=== PATIENT | male | born 1975 | race Caucasian/White ===

== ENCOUNTER 2023-09-07 14:50 | Emergency (ER) | payer OTHER, SELFPAY ==
--- NOTE | ~2023-09-07 | XR_ITS ---
EXAMINATION: XR chest 2V DATE: 09/07/2023 15:19 INDICATION: Cough. Fever. TECHNIQUE: Frontal and lateral views of the chest were obtained. COMPARISON: None. FINDINGS: There is no pneumonia, pleural effusion, or pneumothorax. The heart size is normal. IMPRESSION: 1. No acute cardiopulmonary disease. Reviewed, dictated and finalized at location E.
[2023-09-07 15:00] VITALS: BP 113/70; PULSE 70; RESP 16; TEMP 36.8; O2SAT 97
--- NOTE | 2023-09-07 15:12 | ED.URI ---
HPI - URI/Sore Throat General Chief Complaint: Upper Respiratory Infection Stated Complaint: Cough/Chest Congestion/Shortness of Breath/Fever History of Present Illness HPI Narrative: patient presents for evaluation of cough for the past two weeks. no shortness of breath and no chest pain. patient was evaluated by telehealth weeks ago and give albuterol inhaler and Tessalon pearls patient states he felt better and then this am was more fatigued than usual and did another telehealth visit and was instructed he might have walking pneumonia and to be evaluated with a chest x ray. patient is not taking anything OTC for his symptoms Related Data Home Medications Medication Instructions Recorded Confirmed albuterol sulfate 90 mcg/actuation inhalation 09/07/23 aerosol inhaler benzonatate 200 mg capsule mg PO 09/07/23 Allergies Allergy/AdvReac Type Severity Reaction Status Date / Time No Known Allergies Allergy Verified 09/07/23 15:18 Review of Systems Review of Systems: CONSTITUTIONAL: Denies chills, or sweats. Reports fever and generalized body aches EYES: Denies visual changes, redness, or discharge. ENT: Denies otalgia. Reports nasal congestion runny nose and sore throat CARDIOVASCULAR: Denies chest pain, palpitations, or edema. RESPIRATORY: Denies dyspnea. Reports occasional cough GASTROINTESTINAL: Denies abdominal pain, nausea, vomiting, or diarrhea. GENITOURINARY: Denies dysuria or hematuria. SKIN: Denies rash or itching. MUSCULOSKELETAL: Denies back pain, joint pain, or myalgia. Reports generalized body aches NEUROLOGIC: Denies headache, numbness, or weakness. PSYCHIATRIC: Denies anxiety or depression. PMFSH Comments At time of signature, agree with nursing past medical, surgical, social and family history. There is no relevant family history pertinent to the presenting complaint Exam Narrative: The patient is a well-developed, well-nourished in no acute distress. SKIN: Skin is warm and dry without erythema, swelling or exudate. There is good turgor. No tenting. HEAD: Atraumatic. Normocephalic. No temporal or scalp tenderness. EYES: Moist and bright. Sclera and conjunctivae normal. No discharge. PERRLA. Extraocular motions intact. Gross visual acuity intact. EARS: Pinna is normal shape and contour. Clear external auditory canals. TM pearly jha with good cone of light, no erythema or suppuration. Bilateral cerumen noted no gross hearing deficit. NOSE: pink, moist mucosa with good air movement. Clear rhinorrhea without nasal flaring. Septum midline. Mouth: moist mucous membranes. THROAT; mild erythema noted to posterior oropharynx with moderate postnasal drainage. Without exudate or ulceration.. Uvula midline. Normal movement of soft palate. NECK: Supple and nontender with full range of motion without discomfort. No meningeal signs. LUNGS: Equal and bilateral breath sounds without wheezes, rales or rhonchi. CHEST: The chest wall is without retractions or use of accessory muscles. HEART: Has a regular rate and rhythm without murmur, gallops, click or rub. ABDOMEN: Soft, nontender with positive active bowel sounds. No rebound tenderness. EXTREMITIES: Without cyanosis, clubbing or edema. Equal 2+ distal pulses and 2 second capillary refill noted. NEUROLOGIC: alert, active, . The patient moves all extremities with normal muscle strength. Normal muscle tone is noted. Normal coordination is noted. NO focal neurological findings noted. Course Course Level of Care: Express Care Visit Vital Signs Vital signs: Vital Signs Temperature 36.8 C 09/07/23 15:00 Pulse Rate 70 09/07/23 15:00 Respiratory Rate 16 09/07/23 15:00 Blood Pressure 113/70 09/07/23 15:00 Pulse Oximetry 97 09/07/23 15:00 Oxygen Delivery Room Air 09/07/23 15:00 Temperature 36.8 C 09/07/23 15:00 Pulse Rate 70 09/07/23 15:00 Respiratory Rate 16 09/07/23 15:00 Blood Pressure 113/70 09/07/23 15:00 Pulse
== END 2023-09-07 15:39 | disposition home or self-care (01) ==
PROVIDERS: Emergency Provider Nurse Practitioner Family
DX: J20.9 Acute bronchitis, unspecified (principal)
CPT/HCPCS: 71046; 99213; G0463

== ENCOUNTER 2023-10-28 13:12 | Emergency (ER) | payer OTHER, SELFPAY ==
--- NOTE | ~2023-10-28 | XR_ITS ---
XR finger 2nd LT min 2V Ordering provider: SONAM Ross History: . r/o fx, smashed hand into door 3 days ago . Comparison: None. FINDINGS: BONES: fracture is seen in the distal phalanx of the second finger. No significant displacement of th e fragments is seen. Tiny bony fragment is also seen near to the base of the distal phalanx. JOINT SPACES: Normal. SOFT TISSUES: Normal. IMPRESSION: Fracture in the tip of the distal phalanx of the second finger. Reviewed, dictated and finalized at location A.
[2023-10-28 13:23] VITALS: BP 159/82; PULSE 73; RESP 13; TEMP 36.6; O2SAT 98
[2023-10-28] MEDS: KETOROLAC (*BKC) 60 MG/2 ML VIAL IM (13:51)
[2023-10-28] MEDS: TETANUS,DIPHTHERIA,AC PERTUSSIS ADULT (0.5 ML) BOOSTRIX IM (13:54)
--- NOTE | 2023-10-28 13:58 | ED.GENADULT ---
HPI - General Adult General Chief complaint: Extremity Injury, Upper Stated complaint: Burn to Thumb/ Finger Injury Source: patient Mode of arrival: ambulatory Limitations: no limitations History of Present Illness HPI narrative: Patient presents for evaluation of injuries to his bilateral hands that occurred that occurred 3 days ago. He indicates he picked up a chainsaw and the exhaust burned him on the right thumb. Two logs then rolled together and smashed his left index finger in the process. He reports 10/10 pain in left index finger. He is left-hand dominant. He has a darkened appearance to the nailplate of the right thumb and left index finger. Date of last tetanus unknown. He is not diabetic. He has not taken any medication for his symptoms. Related Data Allergies Allergy/AdvReac Type Severity Reaction Status Date / Time No Known Allergies Allergy Verified 09/07/23 15:18 Review of Systems Review of Systems: CONSTITUTIONAL: Denies fever, chills, or sweats. EYES: Denies visual changes, redness, or discharge. ENT: Denies rhinorrhea, congestion, sore throat, or otalgia. CARDIOVASCULAR: Denies chest pain, palpitations, or edema. RESPIRATORY: Denies cough or dyspnea. GASTROINTESTINAL: Denies abdominal pain, nausea, vomiting, or diarrhea. GENITOURINARY: Denies dysuria or hematuria. SKIN: Reports blistered lesion to the right thumb. Reports dark and appearance of the nail plates the right thumb and left index finger. MUSCULOSKELETAL: Reports pain in the right thumb and left index finger. NEUROLOGIC: Denies headache, numbness, dizziness, or weakness. PSYCHIATRIC: Denies anxiety or depression. [facility] Past Medical History Medical History No pertinent past medical history Surgical History Surgical History No pertinent past surgical history Family History Family History Mother Family history non-contributory Social History Social History Smoking status: Never smoker Substance use: never Living arrangements: with family Gender identity (if verbalized by the patient): Male Spiritual care concerns: No Exam Narrative: GENERAL: Well-appearing, well-nourished, and in no acute distress. HEAD: Normocephalic, atraumatic. EYES: PERRLA and EOMI. ENT: Nares clear, no rhinorrhea or epistaxis. Mucous membranes moist. Oropharynx without tonsillar hypertrophy exudate or other lesions. Bilateral TMs pearly rosales nonbulging NECK: Supple. No adenopathy or masses. No carotid bruits or JVD CHEST: Clear to auscultation. No respiratory distress. No wheezes rales or rhonchi HEART: Regular rate and rhythm. No murmur heard. Normal peripheral pulses. ABDOMEN: Soft, nontender, nondistended, normal active bowel sounds. EXTREMITIES: There is swelling noted to the distal phalanx of the left index finger with associated tenderness SKIN: There is purple discoloration noted to entire nailplate of the left index finger and a more localized area to the right thumb. There is a large blister to the palmar aspect of distal phalanx of right thumb NEURO: No focal deficits. Alert and oriented x3. PSYCH: Normal mood and affect. Course Course Emergency Course: This is a 48-year-old male who presented for evaluation of injuries to several digits of his hands. Nail trephination was performed on right thumb and left index finger. Patient tolerated well. Blistered lesion was drained. Finger was immobilized in aluminum splint. He was updated on tetanus. He will be discharged with cephalexin, silvadene and hydrocodone. He needs to follow up with hand surgeon. He should go to the ER for intractable pain, evidence of infection or worsening symptoms. Pt in agreement with plan of care. Level of Ca
== END 2023-10-28 14:35 | disposition home or self-care (01) ==
PROVIDERS: Emergency Provider Nurse Practitioner
DX: T23.211A Burn of second degree of right thumb (nail), initial encounter (principal); X19.XXXA Contact with other heat and hot substances, initial encounter; S62.661A Nondisplaced fracture of distal phalanx of left index finger, initial encounter for closed fracture; S60.111A Contusion of right thumb with damage to nail, initial encounter; S60.122A Contusion of left index finger with damage to nail, initial encounter; W20.8XXA Other cause of strike by thrown, projected or falling object, initial encounter
CPT/HCPCS: 29130; 11740 ×2; 10160; 73140; 90471; 90715; 96372; 99214; G0463; J1885

== ENCOUNTER 2024-10-30 15:57 | Emergency (ER) | payer OTHER, SELFPAY ==
[2024-10-30 16:00] VITALS: BP 140/75; PULSE 86; RESP 18; TEMP 36.8; O2SAT 98
--- NOTE | 2024-10-30 16:05 | ECG_ITS ---
Test Date: 2024-10-30 16:09:01 Measurements Intervals [place] Rate: 86 P: 48 SC: 186 QRS: 41 QRSD: 95 T: 49 QT: 356 QTc: 428 Interpretive Statements SINUS RHYTHM LOW QRS VOLTAGE IN PRECORDIAL LEADS MINIMAL Q WAVES- INFERIOR LEADS BASELINE ARTIFACT- II, III, AVF BORDERLINE ECG No previous ECG available for comparison Electronically Signed On 11-01-2024 07:06:53 CDT by Joby Thompson D.O.
--- NOTE | 2024-10-30 17:21 | ED_ITS ---
HPI - Back Pain/Injury General Chief Complaint: Back Pain/Injury Stated Complaint: Shortness of Breath/Back Pain/Abdominal Pain Time Seen by Provider: 10/30/24 16:25 Source: patient and RN notes reviewed Mode of arrival: ambulatory Limitations: no limitations History of Present Illness HPI Narrative: 49-year-old male presents Express Care complaining multiple medical complaints. Patient said yesterday he developed mid back pain on his left side. Patient has a maybe he pulled something in his back. Patient denies any apparent injury. Patient had a son use massage given to his back and appeared to have made it worse. Patient said since then he developed radiating pain through his epigastrium and upper abdomen, left leg shooting pain, chest pain, shortness of breath, dizziness. Patient states states the pain is not constant and is worse with certain movements of his back. Patient said the pain was so bad that it made him lose bladder function and he wet himself yesterday. Patient denies any saddle anesthesia, loss of bowel function. Denies any low back pain. Patient states he continues to feel short of breath especially when he is up ambulating, along with dizziness. Patient denies any significant past medical history. Patient has not tried anything [id number] help with symptoms. Patient said he recently had a long travel from [place] a few days ago. Patient denies any history of blood clots, denies any or ripping sensation in his chest or back. Related Data Home Medications ?Medication ?Instructions ?Recorded ?Confirmed ?Last Taken ?Type No Home Medications 10/30/24 10/30/24 Unknown History Allergies Allergy/AdvReac Type Severity Reaction Status Date / Time lactose intolerant AdvReac Unknown Unknown Uncoded 10/30/24 16:16 Review of Systems Review of Systems: CONSTITUTIONAL: Denies fever, chills, or sweats. EYES: Denies visual changes, redness, or discharge. ENT: Denies rhinorrhea, congestion, sore throat, or otalgia. CARDIOVASCULAR: Denies chest pain, palpitations, syncope, lightheadedness, edema. Positive for chest pain, dizzines., RESPIRATORY: Denies cough, respiratory distress, or wheezing. Positive for dyspnea. GASTROINTESTINAL: Denies vomiting, or diarrhea. Positive for upper abdominal pain, and nausea. GENITOURINARY: Denies dysuria or hematuria. SKIN: Denies rash or itching. MUSCULOSKELETAL: Denies back pain, joint pain, or myalgia. NEUROLOGIC: Denies headache, numbness, loss of bowel, saddle anesthesia, or weakness. Positive for loss of bladder function. PSYCHIATRIC: Denies anxiety or depression. All other systems reviewed are negative, except as documented in HPI. [facility] Past Medical History Medical History No pertinent past medical history Surgical History Surgical History No pertinent past surgical history Family History Family History Mother Family history non-contributory Social History Social History Smoking status: Never smoker Substance use: never Living arrangements: with family Gender identity (if verbalized by the patient): Male Spiritual care concerns: No Comments At the time of my signature, I reviewed and agree with the nursing past medical, surgical, social, and family history. There is no relevant family history pertinent to the patient complaint. Exam Narrative: GENERAL: This is a well-nourished, well-developed adult, in no apparent distress. They are non ill-appearing, nontoxic appearing. HEAD: normocephalic, atraumatic. EYES: Sclera clear/white. Conjunctiva normal. Vision is grossly intact. Extraocular movements intact EARS: External ears normal, Hearing grossly intact. NOSE: External nose normal THROAT: Mucous membranes moist, NECK: Neck supple, CARDIOVASCULAR: Regular rate and rhythm without murmurs, gallops, or rubs. RESPIRATORY: Clear to auscultation. Breath sounds equal bilaterally. No wheezes, rales, or rhonchi. Respiratory rate normal, respiratory effort nonlabored, no respiratory distress GASTROINTESTINAL: Abdomen soft, tenderness to palpation in epigastric region, nondistended. Bowel sounds are active. No hepato-splenomegaly, or palpable masses. No guarding, rigidity, no rebound tenderness. SKIN: warm, Dry, intact with no suspicious lesions or rash, good texture and turgor. NEURO: awake, alert, and oriented to person, place and time. There were no obvious focal neurologic abnormalities. EXTREMITIES: No joint tenderness, effusion, or edema noted. BACK: Tenderness to palpation to the left mid medial back. No cervical, thoracic, lumbar point tenderness, crepitus, or step-offs. No CVA tenderness. Course Course Emergency Course: Portions of this record may have been created with voice recognition software Level of Care: Express Care Visit Vital Signs Vital signs: Vital Signs Temperature 98.3 F 10/30/24 16:00 Pulse Rate 86 10/30/24 16:00 Respiratory Rate 18 10/30/24 16:00 Blood Pressure 140/75 10/30/24 16:00 Pulse Oximetry 98 10/30/24 16:00 Oxygen Delivery Room Air 10/30/24 16:00 Temperature 98.3 F 10/30/24 16:00 Pulse Rate 86 10/30/24 16:00 Respiratory Rate 18 10/30/24 16:00 Blood Pressure 140/75 10/30/24 16:00 Pulse Oximetry 98 10/30/24 16:00 Oxygen Delivery Room Air 10/30/24 16:00 Reviewed Transfer Transportation: Other (Private vehicle) Transfer rationale: Chest pain pain, back pain, abdominal pain, dizziness, requiring higher level care Accepting physician: Dr. Bone MDM - Back Pain/Injury MDM Narrative Medical decision making narrative: EKG is negative for any ischemic findings, it is sinus rhythm. Given patient's symptoms, it is recommend the patient seek a higher level care and proceed immediately to the emergency department. Patient is agreeable to [facility] ER. Called over to [facility] ER and spoke to Esperanza Weir who is aware this patient and Dr. Bone who accepted this patient for transfer. Offered patient EMS and he declined. Patient will drive himself to the hospital via private vehicle. Patient is in no apparent distress. Patient is hemodynamically stable to transfer himself. Patient advised to remain NPO and proceed immediately to the ER. Differential Diagnosis Differential diagnosis: Likely sciatica, strain of lumbar region, AAA and other (Renal stone, pulmonary embolism) ECG Data EKG #1: Attestation: I personally reviewed and interpreted this ECG as follows: ECG completion date: 10/30/24 ECG completion time: 16:09 Prior ECG tracings: not available for review EKG Interpretation: normal rate, sinus rhythm, no ectopy, no ST changes and normal QRS Critical Care Time Critical Care Time Critical Care Time: No Discharge Plan Discharge Clinical Impression: Back pain Qualifiers: Back pain location: thoracic back pain Chronicity: acute Back pain laterality: left Qualified Code(s): M54.6 - Pain in thoracic spine Chest pain Qualifiers: Chest pain type: unspecified Qualified Code(s): R07.9 - Chest pain, unspecified Patient Disposition: Acute Care Hospital Condition: Stable Patient Language: Turkish Prescriptions: No Action No Home Medications Follow-up/Referrals: PHYSICIAN,DEVIL DOG [Primary Care Provider] - Time of Disposition: 16:40
== END 2024-10-30 16:43 | disposition short-term general hospital (02) ==
DX: M54.6 Pain in thoracic spine (principal); R07.9 Chest pain, unspecified
CPT/HCPCS: 93005; 99213; G0463

== ENCOUNTER 2025-01-11 09:05 | Emergency (ER) | payer OTHER, SELFPAY ==
[2025-01-11 09:10] VITALS: BP 123/70; PULSE 71; RESP 20; TEMP 36.6; O2SAT 100
--- OUTSIDE RECORDS SUMMARY | 2025-01-11 09:15 | XMS_ITS | Encounter Summary ---
Author Organization [facility] Healthcare Address [address] [place] [address] Care Team Providers Care Water Filtration Technician Name Role Phone Rl Peraza MD Primary Care Provi emilie Encounter Details Date Type Department Care Team (Late st Contact Info) Description 11/14/2024 Results Follow-Up [facility] [address] [place] [address] Rl Peraza MD [address] [place] [address] Magnesium, Comprehensive metabolic panel, eGFR Social History Tobacco Use Types Packs/Day Years Used Date Smoking Tobacco: Never Passive Smoke Exposure: Never Smokeless Tobacco: Never PHQ-2 Answer Date Recorded PHQ-2 Total Score (If total score is 3 or more points, staff should administer the PHQ-9) 0 11/11/2024 PHQ-9 Answer Date Recorded PHQ-9 Total Score 0 11/11/2024 Personal Safety Answer Date Recorded Have you ever been in or are you currently in a harmful physical or emotional relationship or is someone making you feel afraid or unsafe? 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
--- OUTSIDE RECORDS SUMMARY | 2025-01-11 09:15 | XMS_ITS | Clinical Summary ---
Author Organization [facility] Address [address] [place] [address] Phone Care Team Providers Care Skin Washer Name Role Phone Jennifer Ingram DUSTY, WEB ANALYTICS SPECIALIST Unavailable Allergies No known active allergies Medications Fexofenadine-Pse udoephedrine (ELI-D PO) Take by mouth as needed. Active Multiple Vitamin (MULTI-VITAMIN PO) Take by mouth. HOLD FOR 5 DAYS PRIOR TO PROCEDURE Active omeprazole (PriLOSEC) 20 MG CAPSULE DELAYED RELEASEIndicatio ns:Gastroesophag eal reflux disease with esophagitis and hemorrhage Take 1 Capsule by mouth 2 times daily. 180 Capsule 3 3 Active Additional Information Patient taking differently:20 mg OralDAILY, Reported on 06/17/2022 famotidine (PEPCID) 20 MG TabletIndication s:Gastroesophage al reflux disease with esophagitis and hemorrhage Take 1 Tablet by mouth every evening. 90 Tablet 3 3 Active fish oil-omega-3 fatty acids 1000 MG Capsule Take 1 Capsule by mouth daily. HOLD FOR 5 DAYS PRIOR TO PROCEDURE Active Active Problems No known active problems Immunizations Immunization Administration Dates Next Due Covid-19, Mrna, Lnp-s, Pf, 30 Mcg/0.3 Ml Dose (P fizer) 04/23/2021 Influenza Vaccine, Quadrivalent, PF 01/31/2021 TDAP Vaccine 10/12/2014 Family History Medical History Relation Name Comments No Known Problems Brother Cancer Father STOMACH Diabetes Father Cancer Mother ABDOMINAL? Diabetes Mother Other-comment Sister 1 heart palpitat ions No Known Problems Sister 2 Relation Name Status Comments Brother Alive Father Mother Alive Sister 1 Alive Sister 2 Alive Social History Tobacco Use Types Packs/Day Years Used Date Smoking Tobacco: Former Cigarettes Q uit: 2021 Smokeless Tobacco: Former Chew Quit: 1999 Tobacco Cessation:Counseling Given: Not Answered Alcohol Use Standard Drinks/Week Comments Yes 0 (1 standard drink = 0.6 oz pur e alcohol) SOCIALLY PHQ-2 Answer Date Recorded Total Score - Questions 1-9 0 01/11 Education Answer Date Recorded What is the highest level of school you have completed or the highest degree you have received? Associate degree: occupational, technical, or vocational program 05/16/2022 Sexually Active Control Partners Comments Yes Sex and Gender Information Value Date Recorded Sex Assigned at Not on file Legal Sex Male 2:05 PM CDT Gender Identity Not on file Sexual Orientation Not on file Last Filed Vital Signs Vital Sign Reading Time Taken Comments Blood Pressure 113/75 09/02/2022 12:46 PM CDT Pulse 74 09/02/2022 12:46 PM CDT Temperature 36 C (96.8 F) 09/02/2022 12:46 PM CDT Respiratory Rate 21 09/02/2022 12:46 PM CDT Oxygen Saturation 97% 09/02/2022 12:46 PM CDT Inhaled Oxygen Concentration - - Weight 108.9 kg (240 lb) 08/20/2022 1:35 PM CDT Height 193 cm (6' 4) 08/20/2022 1:35 PM CDT Body Mass Index 29.21 08/20/2022 1:35 PM CDT Plan of Treatment Health Maintenance Due Date Last Done Comments Hepatitis B Immunization (1 of 3 - 19+ 3-dose series) 1995 Cologuard 2021 Immunochemical Fecal Occult Blood 2021 SARS-COV-2 Immunization ( season) 2024 04/23/2021, 09/09/2020, 08/19/2020 Td Immunization Every 10 Yea rs (Adults With 1 Tdap) 10/12/2024 10/12/2014 Influenza Immunization (#1) 2025 01/31/2021 Colonoscopy 09/03/2027 09/02/2022 Colorectal Cancer Screening 09/03/2027 Respiratory Syncytial Virus (RSV) Immunization (Adult) (1 - 1-dose 75+ series) 2051 DTaP/Tdap/Td Immunization Discontinued 10/12/2014 Hepatitis C Virus (HCV) Screening Completed 10/17/2020 Human Papillomavirus (HPV) Immunization Aged Out No longer eligible based on patient's age to complete this topic Meningococcal Immunization (ACWY) Aged Out No longer eligible based on patient's age to complete this topic Pneumococcal Immunization Combined Aged Out No longer eligible based on patient's age to complete this topic Rotavirus Immunization Aged Out No lo nger eligible based on patient's age to complete this topic Procedures Procedure Name Priority Date/Time Associated Diagnosis Comments HEPATITIS PANEL ACUTE (AHP) Routine 10/17/2020 10:29 AM CDT Fatigue, unspecified type Weight loss from Last 3 Months or Most Recently Relevant to Health Maintenance Results * HEPATITIS PANEL ACUTE (AHP) (10/17/2020 10:29 AM CDT) HEPATITIS A IGM ANTIBODY NON DETECTED NON DETECTED [address] B 10/17/2020 10:10 PM CDT [facility] Comment: IGM Antibodies to HAV not detected. Does not exclude early acute or recovered HAV infection. HEP B CORE AB (IGM) NON DETECTED NON DETECTED [address] B 10/17/2020 10:10 PM CDT [facility] Comment:IGM anti-HBC not det ected. Does not exclude the possibility of exposure to or infection with HBV. HEPATITIS B SURFACE ANTIGEN NON DETECTED NON DETECTED [address] B 10/17/2020 10:10 PM CDT [facility] Comment:A nonreactive test r esult does not exclude the possibility of exposure to or infection with Hepatitis B virus. A nonreactive test result in individuals with prior exposure to hepatitis B may be due to antigen levels below the detection limit of this assay or lack of antigen reactivity to the antibodies in this assay. hepatitis C antibody 0.12 <1 S/CO [address] B 10/17/2020 10:10 PM CDT [facility] Comment: Signal/Cutoff ratio < 0.79 is Nondetected Signal/Cutoff ratio 0.80-0.99 is Grayzone Signal/Cutoff ratio > 0.99 is Detected Supplemental assays are recommended if signal/cutoff ratio is >/=1.00. Signal/cutoff ratio result >/= 5.00 is 97% predictive of positivity for recombinant immunoblot assay (RIBA) and will be reported to the [place] Department of Public Health as required. Blood Venipuncture / Unknown 10/17/2020 10:29 AM CDT 10/17/2020 10:31 AM CDT us Chris Weber [facility] HEMATOLOGY ORDERABLES Fi nal Result [facility] [address] [place] [address], from Last 3 Months or Most Recently Relevant to Health Maintenance Insurance [facility] Care Teams Skin Washer Relationship Specialty Start Date End Date Jennifer Ingram APRN, WEB ANALYTICS SPECIALIST [address] [place] [address] Nurse Practitioner Advanced Practice Nurse 06/14/22
--- OUTSIDE RECORDS SUMMARY | 2025-01-11 09:15 | XMS_ITS | Encounter Summary ---
Author Organization [facility] Address [address] [place] [address] Phone Care Team Providers Care Flex O Writer Operator Name Role Phone Chris Weber Primary Care Provider U Gabriela Durham APRN, SNOWMAKER Primary Care Provider Jennifer Ingram APRN, SNOWMAKER Unavailable Reason for Visit * Reason Comments Medication Refill Encounter Details Date Type Department Care Team (Late st Contact Info) Description 12/06/2020 Refill [facility] - Primary Care - [place] [address] [place] [id number] Chris Weber, PAC Medication Refill Social History Tobacco Use Types Packs/Day Years Used Date Smoking Tobacco: Never Smokeless Tobacco: Never Alcohol Use Standard Drinks/Week Comments Not Currently 0 (1 standard drink = 0.6 oz pur e alcohol) PHQ-2 Answer Date Recorded Total Score - Questions 1-9 0 11/2020 Sexually Active Control Partners Comments Yes Sex and Gender Information Value Date Recorded Sex Assigned at Not on file Legal Sex Male 2:05 PM CDT Gender Identity Not on file Sexual Orientation Not on file COVID-19 Exposure Response Date Recorded In the last month, have you been in contact with someone who was confirmed or suspected to have Coronavirus / COVID-19? 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
--- OUTSIDE RECORDS SUMMARY | 2025-01-11 09:15 | XMS_ITS | Clinical Summary ---
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 Name Role Phone Rl Peraza MD Primary Care Provi emilie Allergies Active Allergy Reactions Criticality Noted Date Comments Lactose Diarrhea,Flatulence,Stomach upset Low Medications HYDROcodone-willow taminophen (NORCO) 5-325 mg per tabletIndicatio ns:Pain Take 1 tablet by mouth every 6 (six) hours as needed for pain 15 tablet 10/30/2024 Active tamsulosin (FLOMAX) 0.4 mg extended release capsuleIndicati ons:Dysuria,Lef t flank pain Take 1 capsule (0.4 mg total) by mouth daily 30 capsule 11/11/2024 Active Active Problems Problem Noted Date Diagnosed Date Routine adult health maintenance 11/11/2024 Acute left-sided low back pain without sciatica 11/11/2024 Assessment & Plan (11/11/2024 3:21 PM CDT): Orders: Magnesium; Future Left flank pain 11/11/2024 Assessment & Plan (11/11/2024 3:21 PM CDT): Orders: Comprehensive metabolic panel; Future tamsulosin (FLOMAX) 0.4 mg extended release capsule; Take 1 capsule (0.4 mg total) by mouth daily Dysuria 11/11/2024 Assessment & Plan (11/11/2024 3:21 PM CDT): Orders: tamsulosin (FLOMAX) 0.4 mg extended release capsule; Take 1 capsule (0.4 mg total) by mouth daily sulfamethoxazole-trimethoprim (BACTRIM DS) 800-160 mg per tablet; Take 1 tablet by mouth 2 (two) times a day for 10 days Resolved Problems Problem Noted Date Diagnosed Date Resolved Date Non-recurrent acute suppurat satish otitis media of left ear without spontaneous rupture of tympanic membrane 12/14/2022 11/11/2024 Assessment & Plan (12/14/2022 5:35 PM CDT): Antibiotic ordered during this visit. Discussed with patient/caregiver using warm compresses to the affected side, and supportive measures including increase fluid intake, rest, use of Tylenol/Motrin for discomfort and fever. Patient/caregiver understands and agrees with treatment plan. Call or RTC with any questions or concerns. Bronchitis, acute, with bronchospasm 05/10/2022 11/11/2024 Uvulitis 05/10/2022 11/11/2024 Encounters Date Type Department Care Team Description 11/14/2024 Results Follow-Up [facility] at [address] [place] [phone] Rl Peraza MD Magnesium, Comprehensive metabolic panel, eGFR 11/11/2024 3:30 PM CDT Lab [facility] - Outpatient Center at [address] [address] Acute left-sided low back pain without sciatica; Left flank pain 11/11/2024 3:00 PM CDT Office Visit [facility] Primary Care at [address] [place] [phone] Rl Peraza MD Left flank pain (Primary Dx); Dysuria; Acute left-sided low back pain without sciatica 10/30/2024 5:55 PM CDT - 10/31/2024 12:50 AM CDT Emergency [facility] Department [address] [place] [address] Stan Bone MD Dehydration (Primary Dx); Food poisoning; Acute bilateral low back pain without sciatica Discharge Disposition: Discharge to home or self care from Last 3 Months Immunizations Immunization Administration Dates Next Due Influenza, Quadrivalent, Spl it, Preservative Free, Intramuscular 01/31/2021 Influenza, Unspecified 02/19/2024(Deferr ed: Patient Refused),02/19/2024(Deferred: Patient Refused) Tdap 10/28/2023,10/12/2014 Social History Tobacco Use Types Packs/Day Years Used Date Smoking Tobacco: Never Passive Smoke Exposure: Never Smokeless Tobacco: Never Tobacco Cessation:Counseling Given: Not Answered PHQ-2 Answer Date Recorded PHQ-2 Total Score [...] on file 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 Gender Identity Not on file Sexual Orientation Not on file Obstetrics History Last Filed Vital Signs Vital Sign Reading Time Taken Comments Blood Pressure 116/70 11/11/2024 2:53 PM CDT Pulse 78 11/11/2024 2:53 PM CDT Temperature 36.7 C (98 F) 11/11/2024 2:53 PM CDT Respiratory Rate 18 11/11/2024 2:53 PM CDT Oxygen Saturation 98% 11/11/2024 2:53 PM CDT Inhaled Oxygen Concentration - - Weight 106.6 kg (235 lb) 11/11/2024 2:53 PM CDT Height 193 cm (6' 3.98) 11/11/2024 2:53 PM CDT Body Mass Index 28.62 11/11/2024 2:53 PM CDT Plan of Treatment Health Maintenance Due Date Last Done Comments Colon Cancer Screening-Colonoscopy 1976 Hepatitis C Screening 1976 Hepatitis B Screening 1994 Regular Well Visit/Exam 18-64 1994 Covid-19 Vaccine (2023-2 5 season) 2024 04/23/2021, 09/09/2020, 08/19/2020 Influenza Vaccine (#1) 2025 01/31/2021 Depression Screening 11/11/2025 11/11/2024, 11/11/2024 DTaP/Tdap/Td Vaccine (3 - Td or Tdap) 10/27/2033 10/28/2023, 10/12/2014 Pneumococcal vaccine <65 Aged Out No longer eligible based on patient's age to complete this topic Procedures Procedure Name Priority Date/Time Associated Diagnosis Comments EGFR Routine 11/11/2024 3:24 PM CDT Left flank pain COMPREHENSIVE METABOLIC PANEL Routine 11/11/2024 3:24 PM CDT Left flank pain MAGNESIUM Routine 11/11/2024 3:24 PM CDT Acute left-sided low back pain without sciatica TROPONIN T HIGH-SENSITIVITY 2-HOUR Timed 10/30/2024 9:00 PM CDT URINALYSIS AND REFLEX TO MICROSCOPIC STAT 10/30/2024 8:[address] CHEST PE ABDOMEN PELVIS W CONTRAST ED 10/30/2024 6:54 PM CDT XR CHEST PA LATERAL 2 VIEWS ED 10/30/2024 6:41 PM CDT EGFR STAT 10/30/2024 6:18 PM CDT ERYTHROCYTE SEDIMENTATION RATE STAT 10/30/2024 6:18 PM CDT DIFFERENTIAL AUTO STAT 10/30/2024 6:1 8 PM CDT LIPASE STAT 10/30/2024 6:18 PM CDT TROPONIN T HIGH-SENSITIVITY SERIES (BASELINE, 2HR, 4HR, 6HR) STAT 10/30/2024 6:18 PM CDT COMPREHENSIVE METABOLIC PANEL STAT 10/30/2024 6:18 PM CDT CBC WITH AUTO DIFFERENTIAL STAT 10/30/2024 6:18 PM CDT ECG 12-LEAD STAT 10/30/2024 5:54 PM CDT from Last 3 Months Results * eGFR (11/11/2024 3:24 PM CDT) eGFR >90 >=60 mL/min/1. 73 m2 Comment: Interpretive Data Reference Interval Normal >/= 90 mL/min/1.73m2 Mildly decreased* 60 - 89 mL/min/1.73m2 Mildly to moderately decreased 45 - 59 mL/min/1.73m2 Moderately to severely decreased 30 - 44 mL/min/1.73m2 Severely decreased 15 - 29 mL/min/1.73m2 Kidney Failure < 15 mL/min/1.73m2 *Relative to young adult level Estimated glomerular filtration rate is determined by the 2020 CKD-EPI equation recommended by the National Kidney Foundation (A Unifying Approach to GFR Estimation: Recommendations of the NKF-ASK Task Force on Reassessing the Inclusion of Race in Diagnosing Kidney Disease, JASN 2020). The CKD-EPI equation should not be used for patients with unstable renal function and has not been validated in children and those over 70. Current interpretive data was last reviewed 2021. Testing performed by: [address] [address] Blood 11/11/2024 3:24 PM CDT 11/11/2024 8:37 PM CDT us Rl Peraza MD LAB BLOOD ORDERABLE S Final Result [facility] [address] Department [place] [address] * Magnesium (11/11/2024 3:24 PM CDT) [facility] Magnesium 2.2 1.4 - 2.5 mg/dL Comment:Testing performed by : [address] [address] Blood 11/11/2024 3:24 PM CDT 11/11/2024 8:06 PM CDT us Rl Peraza MD LAB BLOOD ORDERABLE S Final Result [address] Department [place] [address] * Comprehensive metabolic panel (11/11/2024 3:24 PM CDT) Sodium 140 135 - 145 mmol/L Comment:Testing performed by : [address] [address] Potassium, pl 4.3 3.3 - 4.9 mmol/L [facility] Comment:Testing performed by : [address] [address] Chloride 104 97 - 110 mmol/L [facility] Comment:Testing performed by : [address] [address] CO2 24 22 - 32 mmol/L [facility] Comment:Testing performed by : [address] [address] Anion gap 12 2 - 15 mmol/L [facility] Comment:Testing performed by : [address] [address] BUN 12 6 - 25 mg/dL [facility] Comment:Testing performed by : [address] [address] Creatinine 1.00 0.80 - 1.30 mg/dL [facility] Comment:Testing performed by : [address] [address] Glucose 92 70 - 199 mg/dL [facility] Comment: Interpretive Data Fasting glucose >/= 126 mg/dl is diagnostic for diabetes. Fasting is defined as no caloric intake for at least 8 hours. Fasting glucose between 100 mg/dl to 125 mg/dl is diagnostic of prediabetes. In a patient with classic symptoms of hyperglycemia or hyperglycemic crisis, a random glucose >/= 200 mg/dl is diagnostic for diabetes. In the absence of unequivocal hyperglycemia, results should be confirmed by repeat testing. The classification and Diagnosis of Diabetes Diabetes Care 202; 46: S19-S40. Current interpretive data was last revised 2022. Testing performed by: [facility], [address] [place] [address]., [address] Calcium 9.4 8.5 - 10.3 mg/dL [facility] Comment:Testing performed by : [address] [address] Bilirubin, total 0.7 0.1 - 1.2 mg/dL [facility] Comment:Testing performed by : [address], [address] Protein, pl 6.5 6.5 - 8.5 g/dL [facility] Comment:Testing performed by : [address] [address] Albumin 4.2 3.5 - 5.0 g/dL [facility] Comment:Testing performed by : [address], [address] Alk phos 68 40 - 130 Units/L [facility] Comment:Testing performed by : [address], [address] ALT 19 7 - 55 Units/L [facility] Comment:Testing performed by : [address] [address] AST 26 10 - 50 Units/L [facility] Comment:Testing performed by : [address] [address] Blood 11/11/2024 3:24 PM CDT 11/11/2024 8:06 PM CDT us Rl Peraza MD LAB BLOOD ORDERABLE S Final Result [address] Department [place] [address] * Troponin T high-sensitivity 2-hour (10/30/2024 9:00 PM CDT) Trop T hs <6 <=22 ng/L Comment: Interpretive Data For further hscTnT resources including the diagnostic algorithm and an aid in interpretation, copy and paste this link: https://nrl.testcatalog.org/show/hsTrop Current Interpretive Data last revised 2020. Trop T hs delta 0 ng/L [facility] ([facility]) Trop T hs interp Insignificant [facility] ([facility]) Blood 10/30/2024 9:00 PM CDT 10/30/2024 9:07 PM CDT Stan Bone MD LAB BLOOD ORDERABLES Final Result [facility] ([facility]) 1 [facility] [place] [address] * (ABNORMAL) Urinalysis reflex to microscopic (10/30/2024 8:11 PM CDT) Color, ur Yellow Yellow Clarity, ur Clear Clear [facility] ([facility]) Specific gravity, ur 1.045(H) 1.003 - 1.030 [facility] ([facility]) pH, urine 5.5 [facility] ([facility]) Comment: Interpretive Data U rine pH is affected by diet, medications, systemic acid-base disturbances, and renal tubular function. pH may affect urinary stone formation. For example, urine pH below 6.0 may help reduce the tendency for calcium phosphate stones and pH greater than 6.0 may reduce the tendency for uric acid stone formation. Source: [facility] [employer] Current Interpretive Data was last revised on 2017 Protein, ur ql Negative Negative [facility] ([facility]) Glucose, ur ql Negative Negative [facility] ([facility]) Ketones, ur Negative Negative [facility] ([facility]) Bilirubin, ur Negative Negative [facility] ([facility]) Blood, ur Negative Negative [facility] ([facility]) Urobilinogen, ur <2.0 <2.0 mg/dL [facility] ([facility]) Nitrite, ur Negative Negative [facility] ([facility]) Leukocyte esterase, ur Negative Negative [facility] ([facility]) UA reflex comment Reflex conditions for microscopic UA not met. [facility] ([facility]) Urine 10/30/2024 8:11 PM CDT 10/30/2024 8:28 PM CDT us Stan Bone MD LAB URINE ORDERABLES Final Result [facility] ([place]) 1 [facility] Department [place] [address] * CT Chest PE (CTA) Abdomen Pelvis W Contrast (10/30/2024 6:54 PM CDT) Anatomical Region Laterality Modality Body N/A Computed Tomogra phy 10/30/2024 7:47 PM CDT Narrative 10/30/2024 8:07 PM CDT EXAM DESCRIPTION: CT CHEST PE (CTA) ABDOMEN PELVIS W CONTRAST REASON FOR STUDY: back and chest pain to right flank and abd, stone versus disection Patient ambulatory to triage with complaints of abd pain, back pain, SOB on exertion since yesterday at lunch time. States pain in abd, hard, states explosion when asked about last BM either last night or this morning. States low back pain that radiates to L flank and down L leg. States CP in middle of chest that radiates both sides. States he urinated himself when he coughed earlier. Denies pain/burning/frequency with urination. TECHNIQUE: CT angiogram of the chest with routine abdomen and pelvis performed with intravenous and without oral contrast using helical scanning technique with dynamic intravenous contrast injection. Reconstructed coronal and sagittal MPR images reviewed. All images stored on PACS. 3D MIP images of the chest rendered on scanning unit and reviewed at time of interpretation. Automated exposure control was used as a dose optimization technique for this examination. CONTRAST TYPE/DOSE: 75mL of IOVERSOL 350 MG IODINE/ML INTRAVENOUS SYRINGE injected via intravenous COMPARISON: Chest radiograph, most recent dated 10/30/2024. FINDINGS: CHEST CHEST VASCULATURE: No acute pulmonary thromboembolism. No thoracic aortic aneurysm or dissection. LUNGS: Moderate emphysematous changes are seen within the bilateral upper lungs. Mild bibasilar and posterior dependent atelectasis and/or scarring. Mild biapical pleuroparenchymal thickening/scarring no focal airspace consolidation. No suspicious pulmonary nodules or masses. PLEURA: No effusion. No pneumothorax. MEDIASTINUM/DOLORES: No identified masses or abnormal nodes. HEART: Heart size is normal with no pericardial effusion. AXILLA: No adenopathy. CHEST WALL: No masses. No subcutaneous air. HARDWARE/LINES/TUBES: None. MUSCULOSKELETAL CHEST: No acute abnormality. ABDOMEN/PELVIS LIVER: Normal size. No identified cystic or solid masses. GALLBLADDER: PICC 1 BILE DUCTS: No intrahepatic or extrahepatic ductal dilatation. SPLEEN: Normal size. No focal lesions. PANCREAS: No identified cystic or solid masses. No significant calcifications. No adjacent inflammation or peripancreatic fluid collections. Pancreatic duct not dilated. ADRENALS: Normal. KIDNEYS/URINARY TRACT: No identified significant cystic or solid masses. No visualized stones. No hydronephrosis or hydroureter. Symmetric enhancement. Urinary bladder is unremarkable. GI: No dilated bowel loops. No obvious wall thickening. Normal appendix. No significant diverticular disease. PERITONEUM: No ascites or free air. Small fat containing umbilical hernia. RETROPERITONEUM: No mass or adenopathy. REPRODUCTIVE: No significant abnormality. VASCULATURE ABDOMEN: Mild aortoiliac atherosclerosis. No abdominal aortic aneurysm. MUSCULOSKELETAL ABDOMEN PELVIS: No acute abnormality. OTHER: No significant abnormality. IMPRESSION: 1. No evidence of acute pulmonary embolism. No acute cardiopulmonary process. 2. No acute abnormality of the abdomen or pelvis. THIS IS AN ELECTRONICALLY VERIFIED FINAL REPORT 10/30/2024 8:07 PM - Electronically signed by Gerard Mtz M.D. MF: RAINE Report ID: [id number] Reading Location: [place] [address] Procedure Note Gerard Mtz, - 10/30/2024 EXAM DESCRIPTION: CT CHEST PE (CTA) ABDOMEN PELVIS W CONTRAST REASON FOR STUDY: back and chest pain to right flank and abd, stone versus disection Patient ambulatory to triage with complaints of abd pain, back pain, SOBon exertion since yesterday at lunch time. States pain in abd, hard, states explosion when asked about last BM either last night or this morning.States low back pain that radiates to L flank and down L leg. States CP inmiddle of chest that radiates both sides. States he urinated himself when hecoughed earlier. Denies pain/burning/frequency with urination. TECHNIQUE: CT angiogram of the chest with routine abdomen and pelvisperformed with intravenous and without oral contrast using helical scanningtechnique with dynamic intravenous contrast injection. Reconstructed coronal and sagittal MPR images reviewed. All images stored on PACS. 3D MIP images ofthe chest rendered on scanning unit and reviewed at time of interpretation. Automated exposure control was used as a dose optimization technique forthis examination. CONTRAST TYPE/DOSE: 75mL of IOVERSOL 350 MG IODINE/ML INTRAVENOUS SYRINGE injected via intravenous COMPARISON: Chest radiograph, most recent dated 10/30/2024. FINDINGS: CHEST CHEST VASCULATURE: No acute pulmonary thromboembolism. No thoracicaortic aneurysm or dissection. LUNGS: Moderate emphysematous changes are seen within the bilateral upper lungs. Mild bibasilar and posterior dependent atelectasis and/orscarring. Mild biapical pleuroparenchymal thickening/scarring no focal airspace consolidation. No suspicious pulmonary nodules or masses. PLEURA: No effusion. No pneumothorax. MEDIASTINUM/DOLORES: No identified masses or abnormal nodes. HEART: Heart size is normal with no pericardial effusion. AXILLA: No adenopathy. CHEST WALL: No masses. No subcutaneous air. HARDWARE/LINES/TUBES: None. MUSCULOSKELETAL CHEST: No acute abnormality. ABDOMEN/PELVIS LIVER: Normal size. No identified cystic or solid masses. GALLBLADDER: PICC 1 BILE DUCTS: No intrahepatic or extrahepatic ductal dilatation. SPLEEN: Normal size. No focal lesions. PANCREAS: No identified cystic or solid masses. No significant calcifications. No adjacent inflammation or peripancreatic fluidcollections. Pancreatic duct not dilated. ADRENALS: Normal. KIDNEYS/URINARY TRACT: No identified significant cystic or solid masses.No visualized stones. No hydronephrosis or hydroureter. Symmetricenhancement. Urinary bladder is unremarkable. GI: No dilated bowel loops. No obvious wall thickening. Normal appendix.No significant diverticular disease. PERITONEUM: No ascites or free air. Small fat containing umbilicalhernia. RETROPERITONEUM: No mass or adenopathy. REPRODUCTIVE: No significant abnormality. VASCULATURE ABDOMEN: Mild aortoiliac atherosclerosis. No abdominalaortic aneurysm. MUSCULOSKELETAL ABDOMEN PELVIS: No acute abnormality. OTHER: No significant abnormality. IMPRESSION: 1. No evidence of acute pulmonary embolism. No acute cardiopulmonary process. 2. No acute abnormality of the abdomen or pelvis. THIS IS AN ELECTRONICALLY VERIFIED FINAL REPORT 10/30/2024 8:07 PM - Electronically signed by Gerard Mtz M.D. MF: RAINE Report ID: [id number] Reading Location: [id number] us Stan Bone MD IMG CT PROCEDURES Final Res ult * XR Chest PA Lateral 2 Views (10/30/2024 6:41 PM CDT) Anatomical Region Laterality Modality Body, Chest N/A Computed Radiogr aphy 10/30/2024 7:47 PM CDT Narrative 10/30/2024 7:49 PM CDT EXAM DESCRIPTION: XR CHEST PA LATERAL 2 VIEWS REASON FOR STUDY: chest pain Patient ambulatory to triage with complaints of abd pain, back pain, SOB on exertion since yesterday at lunch time. States pain in abd, hard, states explosion when asked about last BM either last night or this morning. States low back pain that radiates to L flank and down L leg. States CP in middle of chest that radiates both sides. States he urinated himself when he coughed earlier. Denies pain/burning/frequency with urination. TECHNIQUE: Frontal and lateral radiographic view(s) of the chest. COMPARISON: Chest radiograph dated 05/10/2022. FINDINGS: LUNGS: Emphysematous changes are seen within both upper lungs. No focal airspace consolidation. No pleural effusion or pneumothorax. HEART/MEDIASTINUM: Cardiac silhouette normal in size. Mediastinal and hilar contours appear normal. LINES/TUBES: None. BONES: No acute osseous abnormality. IMPRESSION: Stable chest without acute cardiopulmonary abnormality. THIS IS AN ELECTRONICALLY VERIFIED FINAL REPORT 10/30/2024 7:49 PM - Electronically signed by Gerard Mtz M.D. MF: RAINE Report ID: [id number] Reading Location: [id number] Procedure Note Gerard Mtz, DO - 10/30/2024 EXAM DESCRIPTION: XR CHEST PA LATERAL 2 VIEWS REASON FOR STUDY: chest pain Patient ambulatory to triage with complaints of abd pain, back pain, SOBon exertion since yesterday at lunch time. States pain in abd, hard, states explosion when asked about last BM either last night or this morning.States low back pain that radiates to L flank and down L leg. States CP inmiddle of chest that radiates both sides. States he urinated himself when hecoughed earlier. Denies pain/burning/frequency with urination. TECHNIQUE: Frontal and lateral radiographic view(s) of the chest. COMPARISON: Chest radiograph dated 05/10/2022. FINDINGS: LUNGS: Emphysematous changes are seen within both upper lungs. No focal airspace consolidation. No pleural effusion or pneumothorax. HEART/MEDIASTINUM: Cardiac silhouette normal in size. Mediastinal andhilar contours appear normal. LINES/TUBES: None. BONES: No acute osseous abnormality. IMPRESSION: Stable chest without acute cardiopulmonary abnormality. THIS IS AN ELECTRONICALLY VERIFIED FINAL REPORT 10/30/2024 7:49 PM - Electronically signed by Gerard Mtz M.D. MF: RAINE Report ID: [id number] Reading Location: [place] [address] Stan Bone MD IMG XR PROCEDURES Final Res ult * Troponin T high-sensitivity series (baseline, 2hr, 4hr, 6hr) (10/30/2024 6:18 PM CDT) Trop T hs <6 <=22 ng/L Comment: Interpretive Data For further hscTnT resources including the diagnostic algorithm and an aid in interpretation, copy and paste this link: https://nrl.testcatalog.org/show/hsTrop Current Interpretive Data last revised 2020. Blood 10/30/2024 6:18 PM CDT 10/30/2024 6:28 PM CDT Stan Bone MD LAB BLOOD ORDERABLES Final Result [facility] 1 [facility] Department [place] [address] * eGFR (10/30/2024 6:18 PM CDT) Pathologist [facility] eGFR >90 >=60 mL/min/1. 73 m2 Comment: Interpretive Data Reference Interval Normal >/= 90 mL/min/1.73m2 Mildly decreased* 60 - 89 mL/min/1.73m2 Mildly to moderately decreased 45 - 59 mL/min/1.73m2 Moderately to severely decreased 30 - 44 mL/min/1.73m2 Severely decreased 15 - 29 mL/min/1.73m2 Kidney Failure < 15 mL/min/1.73m2 *Relative to young adult level Estimated glomerular filtration rate is determined by the 2020 CKD-EPI equation recommended by the National Kidney Foundation (A Unifying Approach to GFR Estimation: Recommendations of the NKF-ASK Task Force on Reassessing the Inclusion of Race in Diagnosing Kidney Disease, JASN 2020). The CKD-EPI equation should not be used for patients with unstable renal function and has not been validated in children and those over 70. Current interpretive data was last reviewed 2021. Blood 10/30/2024 6:18 PM CDT 10/30/2024 6:28 PM CDT us Stan Bone MD LAB BLOOD ORDERABLES Final Result [facility] ([place]) 1 [facility] Department [place] [address] * Differential, auto (10/30/2024 6:18 PM CDT) Neutrophil abs 3.61 1.50 - 6.50 K/cumm Imm gran abs 0.03 0.00 - 0.10 K/cumm [facility] ([facility]) Lymphocyte abs 1.98 0.80 - 3.30 K/cumm [facility] ([facility]) Monocyte abs 0.67 0.20 - 0.80 K/cumm [facility] ([facility]) Eosinophil abs 0.04 0.00 - 0.50 K/cumm [facility] ([facility]) Basophil abs 0.03 0.00 - 0.10 K/cumm [facility] ([facility]) Neutrophil pct 56.8 % [facility] ([facility]) Comment: Interpretive Data Percent cell count reference ranges are not reported, since discordance with absolute values may lead to misinterpretation of CBC data. Current Interpretive Data was last revised on 2017. Imm gran pct 0.5 % [facility] ([facility]) Comment: Interpretive Data Percent cell count reference ranges are not reported, since discordance with absolute values may lead to misinterpretation of CBC data. Current Interpretive Data was last revised on 2017. Lymphocyte pct 31.1 % [facility] ([facility]) Comment: Interpretive Data Percent cell count reference ranges are not reported, since discordance with absolute values may lead to misinterpretation of CBC data. Current Interpretive Data was last revised on 2017. Monocyte pct 10.5 % [facility] ([facility]) Comment: Interpretive Data Percent cell count reference ranges are not reported, since discordance with absolute values may lead to misinterpretation of CBC data. Current Interpretive Data was last revised on 2017. Eosinophil pct 0.6 % [facility] ([facility]) Comment: Interpretive Data Percent cell count reference ranges are not reported, since discordance with absolute values may lead to misinterpretation of CBC data. Current Interpretive Data was last revised on 2017. Basophil pct 0.5 % [facility] ([facility]) Comment: Interpretive Data Percent cell count reference ranges are not reported, since discordance with absolute values may lead to misinterpretation of CBC data. Current Interpretive Data was last revised on 2017. Blood 10/30/2024 6:18 PM CDT 10/30/2024 6:28 PM CDT us Stan Bone MD LAB BLOOD ORDERABLES Final Result [facility] (RICHARD) 1 [facility] [place] [address] * CBC with auto differential (10/30/2024 6:18 PM CDT) WBC 6.36 3.80 - 9.90 K/cumm Hgb 15.7 13.0 - 17.5 g/dL [facility] ([place]) Hct 44.2 38.9 - 50.3 % [facility] ([place]) Plt 181 150 - 400 K/cumm [facility] ([place]) MPV 10.1 9.1 - 12.3 fL [facility] ([place]) RBC 5.05 4.30 - 5.80 M/cumm [facility] ([place]) MCV 87.5 81.3 - 96.4 fL [facility] ([place]) MCH 31.1 27.1 - 33.3 pg [facility] ([place]) MCHC 35.5 32.3 - 35.7 g/dL [facility] ([place]) RDW CV 12.4 11.1 - 14.9 % [facility] ([place]) RDW SD 39.5 35.7 - 48.1 fL [facility] NRBC abs 0.00 0.00 - 0.01 K/cumm [facility] Blood Venous blood specimen / Unknown 10/30/2024 6:18 PM CDT 10/30/2024 6:28 PM CDT Stan Bone MD LAB BLOOD ORDERABLES Final Result [facility] ([place]) 1 [facility] [employer] [place] [address] * Erythrocyte sedimentation rate (10/30/2024 6:18 PM CDT) Erythrocyte sedimentation rate 9 1 - 15 mm/hr Blood 10/30/2024 6:18 PM CDT 10/30/2024 6:44 PM CDT Stan Bone MD LAB BLOOD ORDERABLES Final Result [facility] ([place]) 1 [facility] [employer] [place] [address] * Lipase (10/30/2024 6:18 PM CDT) Lipase 49 10 - 99 Units/L Blood 10/30/2024 6:18 PM CDT 10/30/2024 6:28 PM CDT us Stan Bone MD LAB BLOOD ORDERABLES Final Result [facility] ([place]ARD) 1 [facility] [place] [address] * (ABNORMAL) Comprehensive metabolic panel (10/30/2024 6:18 PM CDT) Sodium 138 135 - 145 mmol/L Potassium, pl 4.0 3.3 - 4.9 mmol/L [facility] ([place]) Chloride 102 97 - 110 mmol/L [facility] ([place]) CO2 21(L) 22 - 32 mmol/L [facility] ([place]) Anion gap 15 2 - 15 mmol/L [facility] ([place]) BUN 15 6 - 25 mg/dL [facility] ([place]) Creatinine 0.97 0.80 - 1.30 mg/dL [facility] ([place]) Glucose 82 70 - 199 mg/dL [facility] ([place]) Comment: Interpretive Data Fasting glucose >/= 126 mg/dl is diagnostic for diabetes. Fasting is defined as no caloric intake for at least 8 hours. Fasting glucose between 100 mg/dl to 125 mg/dl is diagnostic of prediabetes. In a patient with classic symptoms of hyperglycemia or hyperglycemic crisis, a random glucose >/= 200 mg/dl is diagnostic for diabetes. In the absence of unequivocal hyperglycemia, results should be confirmed by repeat testing. The classification and Diagnosis of Diabetes Diabetes Care 202; 46: S19-S40. Current interpretive data was last revised 2022. Calcium 9.1 8.5 - 10.3 mg/dL [facility] ([place]) Bilirubin, total 0.4 0.1 - 1.2 mg/dL [facility] ([place]) Protein, pl 6.8 6.5 - 8.5 g/dL [facility] ([place]) Albumin 4.3 3.5 - 5.0 g/dL [facility] ([place]) Alk phos 69 40 - 130 Units/L [facility] ([place]) ALT 21 7 - 55 Units/L [facility] ([place]) AST 18 10 - 50 Units/L [facility] ([place]) Comment:Slightly Hemolyzed S pecimen Blood 10/30/2024 6:18 PM CDT 10/30/2024 6:28 PM CDT us Stan Bone MD LAB BLOOD ORDERABLES Final Result Performing Organization Address City/[facility] Co de Phone Number [facility] ([place]) 1 [facility] [place] [address] * ECG 12 lead (10/30/2024 5:54 PM CDT) 10/30/2024 5:54 PM CDT Narrative [facility] - 10/30/2024 9:00 PM CDT Vent Rate: 78 bpm RR Interval: 763 msec IA Interval: 173 msec QRS Duration: 99 msec QT Interval: 356 msec QTC Interval: 389 msec P-R-T [place]: 38 - 37 - 48 degrees IMPRESSION: SINUS RHYTHM LOW QRS VOLTAGE IN PRECORDIAL LEADS [QRS DEFLECTION < 1.0 mV IN CHEST LEADS] BORDERLINE ECG Electronically Signed By: Abelardo Lucia MD, [facility] Stan Bone MD ECG ORDERABLES Final Resul t Performing Organization Address [facility] Co de Phone Number [facility] [employer] [facility] from Last 3 Months Insurance [employer] Care Teams Machine Oiler Relationship Specialty Start Date End Date Rl Peraza MD [id number] [facility] [address] [phone] PCP - General Family Practice 11/11/24
--- NOTE | 2025-01-11 09:25 | ED_ITS ---
HPI - Wound/Laceration General Chief Complaint: Burn/Smoke Inhalation Stated Complaint: 2nd degree piper left shoulder Time Seen by Provider: 01/11/25 09:20 Source: patient Mode of arrival: ambulatory Limitations: no limitations History of Present Illness HPI narrative: Davdie Whittaker is a 49-year-old male patient presenting to the clinic today with complaints of second-degree burn to the left lateral shoulder. He reports this occurred on December 30, 2024. Was working in [employer] and a pipe broke and sprayed him with 800 degree fluid. Has been keeping the area clean and dry and states it has been oozing clear yellowish fluid. States yesterday he left the area of scab over. Area is tender to touch and states it is painful when he applies burn cream. He denies any fevers, chills, or body aches. Tetanus shot unknown. Related Data Allergies Allergy/AdvReac Type Severity Reaction Status Date / Time lactose intolerant AdvReac Unknown Unknown Uncoded 01/11/25 09:17 Review of Systems Review of Systems: Pertinent positives per HPI. Patient denies any fever, chills, rash, headache, visual changes, dizziness, cough, runny nose, sore throat, shortness of breath, chest pain, palpitations, nausea, vomiting, diarrhea, constipation, abdominal pain, or any urinary issues. PMFSH Past Medical History Medical History No pertinent past medical history Surgical History Surgical History No pertinent past surgical history Family History Family History Mother Family history non-contributory Social History Social History Smoking status: Never smoker Substance use: never Living arrangements: with family Gender identity (if verbalized by the patient): Male Spiritual care concerns: No Comments At the time of my signature, I reviewed and agree with the nursing past medical, surgical, social, and family history. There is no relevant family history pertinent to the patient complaint. Exam Narrative: General: Well-developed, well nourished, in no apparent distress Head: Normocephalic, atraumatic. Cardio: Regular rate and rhythm, s1 and s2 normal, no murmur appreciated. Resp: Clear to auscultation bilaterally, no rhonchi, rales, wheezing or rubs. Integumentary: [place], warm, and dry. Second-degree burn that has a popped blister, area is scabbed over, is tender to palpation, very mild redness surrounding the burn, no induration, area measures 6 x 7 cm to the left lateral shoulder Course Course Emergency Course: Portions of this record may have been created with voice recognition software. Level of Care: Express Care Visit Vital Signs Vital signs: Vital Signs Temperature 36.6 C 01/11/25 09:10 Pulse Rate 71 01/11/25 09:10 Respiratory Rate 20 01/11/25 09:10 Blood Pressure 123/70 01/11/25 09:10 Pulse Oximetry 100 01/11/25 09:10 Oxygen Delivery Room Air 01/11/25 09:10 Temperature 36.6 C 01/11/25 09:10 Pulse Rate 71 01/11/25 09:10 Respiratory Rate 20 01/11/25 09:10 Blood Pressure 123/70 01/11/25 09:10 Pulse Oximetry 100 01/11/25 09:10 Oxygen Delivery Room Air 01/11/25 09:10 Vital signs reviewed MDM - Wound/Laceration MDM Narrative Medical decision making narrative: At the time of visit patient is resting comfortably on the exam table. Patient appears to be nontoxic. Complaints of second-degree burn to the left lateral shoulder. He reports this occurred on December 30, 2024. Was working in [place] and a pipe broke and sprayed him with 800 degree fluid. Has been keeping the area clean and dry and states it has been oozing clear yellowish fluid. States yesterday he left the area of scab over. Area is tender to touch and states it is painful when he applies burn cream. He denies any fevers, chills, or body aches. On exam area patient has second-degree burn that has a popped blister, area is scabbed over, is tender to palpation, very mild redness surrounding the burn, no induration, area measures 6 x 7 cm to the left lateral shoulder. Tetanus shot is not up-to-date. Tetanus shot ordered. Medications: Tdap 0.5 mL IM given in the clinic today Plan: I suspect patient has 2nd degree burn. Patient has yellow scabbing on the burn with some localized redness. Will send in prescription for some mupirocin cream. Recommend follow-up with PCP in 3-5 days for a wound check. Tetanus was updated in the clinic today Supportive measures were discussed with the patient and they voiced understanding discharge instructions and agrees to treatment plan. Return precautions reviewed Differential Diagnosis Differential diagnosis: Likely other (2nd degree burn, sunburn, cellulitis, skin infection) Discharge Plan Discharge Clinical Impression: 2nd deg burn arm Qualifiers: Encounter type: initial encounter Upper extremity location: upper arm Laterality: left Qualified Code(s): T22.232A - Burn of second degree of left upper arm, initial encounter Patient Disposition: Home Condition: Stable Instructions: Antibiotic Form, Second-Degree Burn (ED) Additional Instructions: Tdap 0.5 mL IM given in the clinic today. Keep wound clean and dry as much as possible Keep covered if the wound is draining Apply mupirocin cream to the affected area twice daily x7 days Watch for signs and symptoms of infection- redness, streaking, swelling, purulent discharge, or increase in pain. Follow up with your PCP in 3-5 days for wound check Patient Language: [place]ican Prescriptions: New mupirocin [Centany] 2 % ointment 1 applic topical BID 7 Days Qty: 22 0RF Follow-up/Referrals: PHYSICIAN,RATE SUPERVISOR [Primary Care Provider, Internal Medicine] Time of Disposition: 09:27 Quality NIHSS Nursing Documentation ED NIHSS nursing documentation: reviewed/agree
[2025-01-11] MEDS: TETANUS,DIPHTHERIA,AC PERTUSSIS ADULT (0.5 ML) BOOSTRIX IM (09:33)
== END 2025-01-11 09:48 | disposition home or self-care (01) ==
PROVIDERS: Emergency Provider Nurse Practitioner Family
DX: T22.20XA Burn of second degree of shoulder and upper limb, except wrist and hand, unspecified site, initial encounter (principal); X12.XXXA Contact with other hot fluids, initial encounter; Y99.0 Civilian activity done for income or pay; Z23 Encounter for immunization
CPT/HCPCS: 90471; 90715; 99213; G0463

== ENCOUNTER 2025-02-19 16:15 | Emergency (ER) | payer OTHER, SELFPAY ==
--- NOTE | 2025-02-19 16:16 | ED_ITS ---
HPI - Extremity Injury (Lower) General Chief Complaint: Extremity Injury, Lower Stated Complaint: Left Knee Injury Time Seen by Provider: 02/19/25 16:15 Source: patient Mode of arrival: ambulatory Limitations: no limitations History of Present Illness HPI Narrative: Davide is a 49 year old male patient presenting to the clinic today with c/o left knee laceration that occurred at 4:00pm this afternoon. He reports he accidentally cut his knee with a chain saw. States that it credit his pants any has 3 cuts to the anterior knee. Bleeding is controlled. Tetanus shot is up-to-date. Related Data Allergies Allergy/AdvReac Type Severity Reaction Status Date / Time lactose intolerant AdvReac Unknown Unknown Uncoded 01/11/25 09:17 Review of Systems Review of Systems: Pertinent positives per HPI. Patient denies any fever, chills, rash, headache, visual changes, dizziness, cough, runny nose, sore throat, shortness of breath, chest pain, palpitations, nausea, vomiting, diarrhea, constipation, abdominal pain, or any urinary issues. PMFSH Past Medical History Medical History No pertinent past medical history Surgical History Surgical History No pertinent past surgical history Family History Family History Mother Family history non-contributory Social History Social History Smoking status: Never smoker Substance use: never Living arrangements: with family Gender identity (if verbalized by the patient): Male Spiritual care concerns: No Comments At the time of my signature, I reviewed and agree with the nursing past medical, surgical, social, and family history. There is no relevant family history pertinent to the patient complaint. Exam Narrative: General: Well-developed, well nourished, in no apparent distress Head: Normocephalic, atraumatic. Cardio: Regular rate and rhythm, s1 and s2 normal, no murmur appreciated. Resp: Clear to auscultation bilaterally, no rhonchi, rales, wheezing or rubs. Musculoskeletal: No deformity, 2 abrasion laceration to the left anterior knee, 1 superficial laceration measuring 5cm to the mid anterior knee, able to flex and extend knee, grossly normal range of motion, muscle strength strong and equal, peripheral pulse strong, no edema, no cyanosis, normal gait and station Course Course Emergency Course: Portions of this record may have been created with voice recognition software. Level of Care: Express Care Visit Vital Signs Vital signs: Vital Signs Temperature 36.6 C 02/19/25 16:17 Pulse Rate 108 H 02/19/25 16:17 Respiratory Rate 20 02/19/25 16:17 Blood Pressure 105/64 02/19/25 16:17 Pulse Oximetry 99 02/19/25 16:17 Oxygen Delivery Room Air 02/19/25 16:17 Temperature 36.6 C 02/19/25 16:17 Pulse Rate 108 H 02/19/25 16:17 Respiratory Rate 20 02/19/25 16:17 Blood Pressure 105/64 02/19/25 16:17 Pulse Oximetry 99 02/19/25 16:17 Oxygen Delivery Room Air 02/19/25 16:17 Vital signs reviewed Procedures Laceration Laceration 1: Date: 02/19/25 Site: lower extremity (left anterior knee) Side (If applicable): left Size (cm): 5 Description: linear Depth: simple, single layer Local Anesthetic: lidocaine 1% and with epi Amount of anesthesia used (mL): 2 Pre-repair: wound explored and irrigated ====== Skin Level ====== Skin layer closed with: nylon Size (cm): 4-0 Number of sutures: 6 Technique: simple, interrupted ====== Subcutaneous Layer ====== ====== Muscle Layer ====== ====== Tendon Layer ====== Dressing: Verbal consent obtained for laceration repair. Risk and benefits explained and patient voiced understanding. Area was cleansed with antiseptic wound wash and a 27 gauge needle was then used to instill (2) ml of 1% lidocaine with epi into the wound edges. Area was prepped and draped using sterile technique. A 4-0 suture on a p needle was used to place (6) interrupted sutures bringing the wound edges together- well approximated. Patient tolerated procedure well. S terile dressing applied. MDM - Extremity Injury (Lower) MDM Narrative Medical decision making narrative: At the time of visit patient is resting comfortably on the exam table. Patient appears to be nontoxic. C/o left knee laceration that occurred at 4:00pm this afternoon. He reports he accidentally cut his knee with a chain saw. States that it credit his pants any has 3 cuts to the anterior knee. Bleeding is controlled. Tetanus shot is up-to-date. On exam patient has 2 abrasion laceration to the left anterior knee, 1 superficial laceration measuring 5cm to the mid anterior knee, able to flex and extend knee Procedure: Laceration repair was performed in the clinic. Area was cleansed with antiseptic wound wash and a 27 gauge needle was used to inject lidocaine with epi- 2ml injected. Anesthesia was appropriate. Six 4-0 interrupted sutures were placed bringing wound edges well approximate. Patient tolerated well Plan: Left anterior knee laceration/abrasion. Supportive measures were discussed with the patient and they voiced understanding discharge instructions and agrees to treatment plan. Return precautions reviewed Differential Diagnosis Differential diagnosis: Likely other (Laceration, abrasion, skin avulsion) Discharge Plan Discharge Clinical Impression: Laceration of knee Qualifiers: Encounter type: initial encounter Laterality: left Qualified Code(s): S81.012A - Laceration without foreign body, left knee, initial encounter Abrasion of knee, left Qualifiers: Encounter type: initial encounter Qualified Code(s): S80.212A - Abrasion, left knee, initial encounter Patient Disposition: Home Condition: Stable Instructions: Antibiotic Form, Laceration (ED), Abrasion (ED) Additional Instructions: Leave bandage on for 24 hours then may remove and apply band aide covering as needed. Wear knee immobilizer as discussed Keep wound clean and dry Skin sutures out in 10-14 days. May wash with soap and water and pat dry. Watch for signs and symptoms of infection- redness, streaking, swelling, purulent discharge, or increase in pain. Follow up with your PCP for suture removal or return to the Express care. Patient Language: Danish Prescriptions: New cephalexin 500 mg capsule 500 mg PO Q12H 7 Days Qty: 14 0RF Follow-up/Referrals: UNKNOWN,DOCTOR [Non-Staff] Time of Disposition: 16:53 Quality [facility] Nursing Documentation ED [facility] nursing documentation: reviewed/agree
[2025-02-19 16:17] VITALS: BP 105/64; PULSE 108; RESP 20; TEMP 36.6; O2SAT 99
--- OUTSIDE RECORDS SUMMARY | 2025-02-19 16:20 | XMS_ITS | Encounter Summary ---
Author Organization [facility] Address [address] [place] [address] Phone Care Team Providers Care Stained Glass Glazier Name Role Phone Chris Weber Primary Care Provider U Gabriela Durham APRN, CHILD WELFARE ASSISTANT Primary Care Provider Jennifer Ingram APRN, CHILD WELFARE ASSISTANT Unavailable Reason for Visit * Reason Comments Medication Refill Encounter Details Date Type Department Care Team (Late st Contact Info) Description 12/06/2020 Refill [facility] - [facility] - [place] [facility] [address] [place] [id number] Chris Weber, PAC Medication Refill Social History [...] 19 03/13/2022 03/13/2022 03/23/2022 12:1 7 AM PROJECT HIRE Assessment Noted Time PHQ-9 Depression Total Score: 0 10/17/19 21 2:00 PM CDT documented as of this encounter Care Teams Stained Glass Glazier Relationship Specialty Start Date End Date Chris Weber PAC PCP - General Physician Field Administrator 10/16/20 12/02/21 Gabriela Oswald APRN, CHILD WELFARE ASSISTANT [address] [place] [address] PCP - General Advanced Practice Nurse 12/03/21 07/30/23 Jennifer Ingram APRN, CHILD WELFARE ASSISTANT [address] [place] [address] Nurse Practitioner Advanced Practice Nurse 06/14/22 documented as of this encounter
--- OUTSIDE RECORDS SUMMARY | 2025-02-19 16:20 | XMS_ITS | Clinical Summary ---
Author Organization [facility] Address [address] [place] [address] Phone Care Team Providers Care Medical Lead Name Role Phone Jennifer Ingram DUSTY, HEALTH AND SAFETY TRAINER Unavailable Allergies No known active allergies Medications [...] Cologuard 2021 Immunochemical Fecal Occult Blood 2021 Td Immunization Every 10 Yea rs (Adults With 1 Tdap) 10/12/2024 10/12/2014 Influenza Immunization (#1) 2025 01/31/2021 SARS-COV-2 Immunization ( season) 2025 04/23/2021, 09/09/2020, 08/19/2020 Colonoscopy 09/03/2027 09/02/2022 Colorectal Cancer Screening 09/03/2027 [...] A IGM ANTIBODY NON DETECTED NON DETECTED [address] B 10/17/2020 10:10 PM CDT [facility] Comment: IGM Antibodies to HAV not detected. Does not exclude early acute or recovered HAV infection. HEP B CORE AB (IGM) NON DETECTED NON DETECTED [address] 10/17/2020 10:10 PM CDT [facility] Comment:IGM anti-HBC not det ected. Does not exclude the possibility of exposure to or infection with HBV. HEPATITIS B SURFACE ANTIGEN NON DETECTED NON DETECTED [address] B 10/17/2020 10:10 PM CDT [facility] Comment:A nonreactive test r esult does not exclude the possibility of exposure to or infection with Hepatitis B virus. A nonreactive test result in individuals with prior exposure to hepatitis B may be due to antigen levels below the detection limit of this assay or lack of antigen reactivity to the antibodies in this assay. hepatitis C antibody 0.12 <1 S/CO [address] B 10/17/2020 10:10 PM CDT [facility] Comment: Signal/Cutoff ratio < 0.79 is Nondetected Signal/Cutoff ratio 0.80-0.99 is Grayzone Signal/Cutoff ratio > 0.99 is Detected Supplemental assays are recommended if signal/cutoff ratio is >/=1.00. Signal/cutoff ratio result >/= 5.00 is 97% predictive of positivity for recombinant immunoblot assay (RIBA) and will be reported to the [place] [facility] Public [facility] as required. Blood Venipuncture / Unknown 10/17/2020 10:29 AM CDT 10/17/2020 10:31 AM CDT us Chris Weber [facility] HEMATOLOGY ORDERABLES Fi nal Result [facility] [address] [place] [address], from Last 3 Months or Most Recently Relevant to Health Maintenance Insurance [facility] Care Teams Medical Lead Relationship Specialty Start Date End Date Jennifer Ingram APRN, HEALTH AND SAFETY TRAINER [address] [place] [address] Nurse Practitioner Advanced Practice Nurse 06/14/22
[2025-02-19] MEDS: LIDO 1%/EPINEPHRINE 1:100,000 20 ML VIAL 10 ML INFILTRATE (16:31)
== END 2025-02-19 17:09 | disposition home or self-care (01) ==
PROVIDERS: Emergency Provider Nurse Practitioner Family
DX: S81.012A Laceration without foreign body, left knee, initial encounter (principal); S80.212A Abrasion, left knee, initial encounter; W29.3XXA Contact with powered garden and outdoor hand tools and machinery, initial encounter
CPT/HCPCS: 12002; 99213; G0463; J2004; L1830